=== PATIENT | male | born 1990 | race African-American/Black ===

== ENCOUNTER 2016-12-16 19:39 | Emergency (ER) | payer BC ==
[~2016-12-16] VITALS: Ht 182.8 cm; Wt 104.3 kg
[~2016-12-16 19:39] MED LIST: ADVAIR 100/501 EA INH; ADVAIR DISKUS 11 DSK IH; ALBUTEROL0.09 MG/A2 IH; AMOXICILLIN500 M2 PO; AMOXICILLIN500 MG PO; ANAPROX DS550 MG PO; AVIDOXY100 MG PO; BACTRIM DS 8001 TA1 PO; CLARITIN10 MG PO; CLINDAMYCIN HC300 MG PO; CLINDAMYCIN150 MG PO; CYCLOBENZAPRINE10 MG PO; DOK COLACE100 MG PO; DONNATAL1 TAB PO; FLAGYL500 MG PO; FLONASE 0.05% 121 EA NAS; HYDROCODONE BIT1 T11 PO; KEFLEX500 MG PO; MEDROL DOSEPAK4 MG PO; MOTRIN800 MG PO; Motrin,Rufen800 MG PO; NAPROSYN250 MG PO; NAPROSYN500 MG PO; NASONEX0.05 MG/AC NAS; NATURE S BLEND PO; NORCO 325 MG-51 TAB PO; NORCO 5-325 TA1 EACH PO; PERCOCET 325 MG1 TA2 PO; PHENERGAN W/DM120 ML PO; PREDNICOT10 MG PO; PREDNISONE10 MG PO; PROAIR HFA0.09 MG/AC INH; PROVENTIL0.09 MG/AC IH; SINGULAIR10 MG PO; SUDAFED60 MG PO; TESSALON PERLE100 M1 PO; TOBREX OPHTH S2.5 ML OPH; TRAMADOL HCL50 MG PO; ULTRAM50 MG PO; VIBRAMYCIN100 MG PO; VICODIN 5/500 505 MG PO; ZITHROMAX Z PA250 MG PO; ZOFRAN ODT4 MG SL; ZOFRAN4 MG PO; ZYRTEC10 MG PO
[2016-12-16 20:16] LABS: BASO % 0.3 % (0.0-1.0); EOS # 0.4 10*3/uL (0.0-0.4); EOS % 3.5 % (1.0-4.0); HEMATOCRIT 44.2 % (42.0-52.0); HEMOGLOBIN 14.7 g/dl (14.0-18.0); LYMPH # 2.2 10*3/uL (1.3-4.4); LYMPH % 19.6 % (27.0-41.0); MEAN CELL VOLUME 89.7 fl (80.0-94.0); MEAN CORPUSCULAR HGB 29.8 pg (27.0-31.0); MEAN CORPUSCULAR HGB CONC 33.3 g/dl (33.0-37.0); MONO % 8.7 % (3.0-9.0); NEUT # 7.7 10*3/uL (2.3-7.9); NEUT % 67.6 % (47.0-73.0); PLATELET COUNT AUTOMATED 278 10*3/uL (130-400); RED BLOOD COUNT 4.93 10*6/uL (4.50-5.90); WHITE BLOOD COUNT 11.4 10*3/uL (4.8-10.8)
[2016-12-16 20:31] LABS: ALKALINE PHOSPHATASE 62 U/L (45-117); BILIRUBIN, TOTAL 0.9 mg/dl (0.2-1.0); BUN 18 mg/dl (7-24); CARBON DIOXIDE 29 mmol/L (21-32); CHLORIDE 104 mmol/L (98-107); EST GLOM FILT AFRICAN AMERICAN > 60 ml/min; GLUCOSE 87 mg/dL (65-99); POTASSIUM 3.9 mmol/L (3.5-5.1); SGOT/AST 20 IU/L (3-35); SGPT/ALT 45 U/L (12-78); SODIUM 139 mmol/L (136-145); TOTAL PROTEIN 7.7 gm/dL (6.4-8.2)
[2016-12-16 20:55] LABS: BILIRUBIN NEGATIVE (NEGATIVE); BLOOD NEGATIVE (NEGATIVE); CLARITY CLEAR (CLEAR); COLOR YELLOW (YELLOW); GLUCOSE NEGATIVE (NEGATIVE); KETONE NEGATIVE (NEGATIVE); LEUKO ESTERASE NEGATIVE (NEGATIVE); NITRITE NEGATIVE (NEGATIVE); PH 5.5 (5.0-9.0); PROTEIN NEGATIVE (NEGATIVE); UROBILINOGEN 0.2 E.U./dl (0.2-1.0)
[2016-12-16 21:09] LABS: BACTERIA TRACE; URINE REFLEX COMMENT NO (NO); WBC 0-2 wbc/hpf (0-5)
[2016-12-16] MEDS ORDERED: ZOFRAN ODT4 MG SL (22:05)
== END 2016-12-16 22:07 | disposition home or self-care (01) ==
LOC: ED 19:39
PROVIDERS: Nurse Practitioner Family
DX: A08.4 Viral intestinal infection, unspecified (principal); F17.200 Nicotine dependence, unspecified, uncomplicated

== ENCOUNTER 2017-01-08 05:35 | Emergency (ER) | payer BC ==
[~2017-01-08] VITALS: Ht 182.8 cm; Wt 102.1 kg
[2017-01-08] MEDS ORDERED: Motrin,Rufen800 MG PO (05:56)
== END 2017-01-08 06:39 | disposition home or self-care (01) ==
LOC: ED 05:35
DX: M23.91 Unspecified internal derangement of right knee (principal)

== ENCOUNTER 2017-01-18 23:10 | Emergency (ER) | payer BC ==
[~2017-01-18] VITALS: Ht 182.8 cm; Wt 99.8 kg
== END 2017-01-19 00:27 | disposition home or self-care (01) ==
LOC: ED 23:10
DX: S80.01XA Contusion of right knee, initial encounter (principal); F17.200 Nicotine dependence, unspecified, uncomplicated; X58.XXXA Exposure to other specified factors, initial encounter; Y93.89 Activity, other specified; Y92.9 Unspecified place or not applicable; Y99.9 Unspecified external cause status

== ENCOUNTER 2017-02-25 00:46 | Emergency (ER) | payer BC ==
[~2017-02-25] VITALS: Ht 182.8 cm; Wt 113.4 kg
[2017-02-25] MEDS ORDERED: AMOXICILLIN500 M2 PO (01:11)
== END 2017-02-25 03:40 | disposition home or self-care (01) ==
LOC: ED 00:46
DX: K08.89 Other specified disorders of teeth and supporting structures (principal); F17.200 Nicotine dependence, unspecified, uncomplicated

== ENCOUNTER 2017-04-22 19:26 | Emergency (ER) | payer BC ==
[~2017-04-22] VITALS: Ht 177.8 cm; Wt 79.4 kg
== END 2017-04-22 23:54 | disposition home or self-care (01) ==
LOC: ED 19:26
DX: S93.402A Sprain of unspecified ligament of left ankle, initial encounter (principal); F17.200 Nicotine dependence, unspecified, uncomplicated; X58.XXXA Exposure to other specified factors, initial encounter; Y93.89 Activity, other specified; Y92.9 Unspecified place or not applicable; Y99.9 Unspecified external cause status

== ENCOUNTER 2017-05-22 02:19 | Emergency (ER) | payer BC ==
[~2017-05-22] VITALS: Ht 182.8 cm; Wt 113.4 kg
[2017-05-22 02:58] LABS: BILIRUBIN NEGATIVE (NEGATIVE); BLOOD NEGATIVE (NEGATIVE); CLARITY CLEAR (CLEAR); COLOR YELLOW (YELLOW); GLUCOSE NEGATIVE (NEGATIVE); KETONE NEGATIVE (NEGATIVE); LEUKO ESTERASE NEGATIVE (NEGATIVE); NITRITE NEGATIVE (NEGATIVE); PH 5.5 (5.0-9.0); SPECIFIC GRAVITY >= 1.030 (1.005-1.030)
[2017-05-22 03:04] LABS: MUCOUS TRACE; WBC 0-2 wbc/hpf (0-5)
[2017-05-22] MEDS ORDERED: Orphenadrine C100 MG PO (04:05)
[2017-05-22] MEDS ORDERED: Motrin,Rufen800 MG PO (04:05)
[2017-05-22 04:35] LABS: URINE AMPHETAMINES < 1000 (1000ng/ml); URINE BARBITURATES < 200 (200ng/ml); URINE BENZODIAZEPINES < 200 (200ng/ml); URINE CANNABINOIDS (THC) < 50 (50ng/ml); URINE COCAINE < 300 (300ng/ml); URINE METHADONE < 300 (300ng/ml); URINE OPIATES < 300 (300ng/ml)
[2017-05-22 04:36] LABS: URINE PHENCYCLIDINE < 25 (25ng/ml)
== END 2017-05-22 04:38 | disposition home or self-care (01) ==
LOC: ED 02:19
PROVIDERS: Emergency Medicine Emergency Medical Services
DX: S00.03XA Contusion of scalp, initial encounter (principal); S20.211A Contusion of right front wall of thorax, initial encounter; F17.200 Nicotine dependence, unspecified, uncomplicated; Y08.89XA Assault by other specified means, initial encounter; Y93.89 Activity, other specified; Y92.89 Other specified places as the place of occurrence of the external cause; Y99.9 Unspecified external cause status

== ENCOUNTER 2017-07-04 22:53 | Emergency (ER) | payer BC ==
[~2017-07-04] VITALS: Ht 182.8 cm; Wt 113.4 kg
[~2017-07-04 22:53] MED LIST changes: +Orphenadrine C100 MG PO
[2017-07-04] MEDS ORDERED: AUGMENTIN 875875 MG PO (23:08)
== END 2017-07-05 00:06 | disposition home or self-care (01) ==
LOC: ED 22:53
DX: K02.9 Dental caries, unspecified (principal); F17.200 Nicotine dependence, unspecified, uncomplicated

== ENCOUNTER 2017-09-10 16:17 | Emergency (ER) | payer BC ==
[~2017-09-10] VITALS: Ht 182.8 cm; Wt 113.4 kg
[~2017-09-10 16:17] MED LIST changes: +AUGMENTIN 875875 MG PO
[2017-09-10] MEDS ORDERED: CYCLOBENZAPRINE10 MG PO (17:35)
== END 2017-09-10 19:40 | disposition home or self-care (01) ==
LOC: ED 16:17
DX: M54.5 Low back pain (principal); F17.200 Nicotine dependence, unspecified, uncomplicated; Z79.899 Other long term (current) drug therapy

== ENCOUNTER 2017-11-29 07:46 | Emergency (ER) | payer BC ==
[~2017-11-29] VITALS: Ht 182.8 cm; Wt 113.4 kg
[2017-11-29 07:59] LABS: HEMATOCRIT 47.7 % (42.0-52.0); HEMOGLOBIN 15.5 g/dl (14.0-18.0); MEAN CELL VOLUME 89.8 fl (80.0-94.0); MEAN CORPUSCULAR HGB 29.2 pg (27.0-31.0); MEAN CORPUSCULAR HGB CONC 32.5 g/dl (33.0-37.0); MEAN PLATELET VOLUME 9.8 fl (9.6-12.3); PLATELET COUNT AUTOMATED 327 10*3/uL (130-400); RED BLOOD COUNT 5.31 10*6/uL (4.50-5.90); RED CELL DISTRI WIDTH 13.1 % (0-14.5); WHITE BLOOD COUNT 13.7 10*3/uL (4.8-10.8)
[2017-11-29 08:08] LABS: ACT PARTIAL THROMBO TIME 26.5 SECONDS (20.8-31.5)
[2017-11-29 08:21] LABS: ALKALINE PHOSPHATASE 84 U/L (45-117); BUN 9 mg/dl (7-24); CHLORIDE 103 mmol/L (98-107); CREATININE 0.98 mg/dL (0.70-1.30); POTASSIUM 3.6 mmol/L (3.5-5.1); SGOT/AST 21 IU/L (3-35); SGPT/ALT 40 U/L (12-78); SODIUM 140 mmol/L (136-145); TOTAL PROTEIN 7.8 gm/dL (6.4-8.2)
[2017-11-29 08:26] LABS: ATYPICAL LYMPHS 3 % (0-0); PLATELET SUFFICIENCY NORMAL (NORMAL); TOTAL CELLS COUNTED 100 #CELLS; TROPONIN I < 0.015 ng/ml (<0.045)
== END 2017-11-29 09:05 | disposition home or self-care (01) ==
LOC: ED 07:46
PROVIDERS: Emergency Medicine
DX: R07.89 Other chest pain (principal); R06.02 Shortness of breath

== ENCOUNTER 2017-12-02 20:11 | Emergency (ER) | payer BC ==
[~2017-12-02] VITALS: Ht 182.8 cm; Wt 113.4 kg
[2017-12-02] MEDS ORDERED: Motrin,Rufen800 MG PO (22:28)
[2017-12-02] MEDS ORDERED: CYCLOBENZAPRINE5 M3 PO (22:28)
== END 2017-12-02 22:32 | disposition home or self-care (01) ==
LOC: ED 20:11
DX: M54.5 Low back pain (principal); F17.200 Nicotine dependence, unspecified, uncomplicated; Z79.899 Other long term (current) drug therapy

== ENCOUNTER 2017-12-27 21:19 | Emergency (ER) | payer OTHER, BC ==
[~2017-12-27] VITALS: Ht 182.8 cm; Wt 113.4 kg
[~2017-12-27 21:19] MED LIST changes: +CYCLOBENZAPRINE5 M3 PO
[2017-12-27] MEDS ORDERED: Orphenadrine C100 MG PO (22:47)
[2017-12-27] MEDS ORDERED: KETOROLAC10 MG PO (22:47)
== END 2017-12-27 22:52 | disposition home or self-care (01) ==
LOC: ED 21:19
DX: S16.1XXA Strain of muscle, fascia and tendon at neck level, initial encounter (principal); S50.02XA Contusion of left elbow, initial encounter; S80.01XA Contusion of right knee, initial encounter; F17.200 Nicotine dependence, unspecified, uncomplicated; Z79.899 Other long term (current) drug therapy; V49.88XA Car occupant (driver) (passenger) injured in other specified transport accidents, initial encounter; Y93.89 Activity, other specified; Y92.413 State road as the place of occurrence of the external cause; Y99.9 Unspecified external cause status

== ENCOUNTER 2018-03-17 19:51 | Emergency (ER) | payer BC ==
[~2018-03-17] VITALS: Wt 113.4 kg
[~2018-03-17 19:51] MED LIST changes: +KETOROLAC10 MG PO
== END 2018-03-17 21:05 | disposition home or self-care (01) ==
LOC: ED 19:51
DX: M17.11 Unilateral primary osteoarthritis, right knee (principal); F17.200 Nicotine dependence, unspecified, uncomplicated

== ENCOUNTER 2018-09-19 07:48 | Emergency (ER) | payer OTHER, BC ==
[~2018-09-19] VITALS: Ht 182.8 cm; Wt 113.4 kg
[2018-09-19 08:37] LABS: BASO # 0.1 10*3/uL (0.0-0.1); BASO % 0.5 % (0.0-1.0); EOS # 0.4 10*3/uL (0.0-0.4); HEMATOCRIT 43.4 % (42.0-52.0); HEMOGLOBIN 14.4 g/dl (14.0-18.0); LYMPH # 3.9 10*3/uL (1.3-4.4); LYMPH % 35.1 % (27.0-41.0); MEAN CELL VOLUME 90.2 fl (80.0-94.0); MEAN CORPUSCULAR HGB 29.9 pg (27.0-31.0); MEAN CORPUSCULAR HGB CONC 33.2 g/dl (33.0-37.0); MEAN PLATELET VOLUME 10.1 fl (9.6-12.3); MONO # 1.2 10*3/uL (0.1-1.0); MONO % 10.9 % (3.0-9.0); NEUT # 5.5 10*3/uL (2.3-7.9); NEUT % 49.2 % (47.0-73.0); PLATELET COUNT AUTOMATED 305 10*3/uL (130-400); RED BLOOD COUNT 4.81 10*6/uL (4.50-5.90); RED CELL DISTRI WIDTH 13.1 % (0-14.5); WHITE BLOOD COUNT 11.1 10*3/uL (4.8-10.8)
[2018-09-19 08:55] LABS: BUN 15 mg/dl (7-24); CHLORIDE 105 mmol/L (98-107); CREATININE 1.07 mg/dL (0.70-1.30); POTASSIUM 3.6 mmol/L (3.5-5.1); SODIUM 139 mmol/L (136-145)
[2018-09-19 08:56] LABS: TROPONIN I < 0.015 ng/ml (<0.045)
[2018-11-11] MEDS ORDERED: FLONASE ALLERG9.9 ML NAS (14:53)
[2018-11-11] MEDS ORDERED: ROBITUSSIN DM 105 ML PO (14:53)
== END 2018-09-19 09:27 | disposition home or self-care (01) ==
LOC: ED 07:48
PROVIDERS: Emergency Medicine
DX: J70.5 Respiratory conditions due to smoke inhalation (principal); R07.89 Other chest pain; M17.11 Unilateral primary osteoarthritis, right knee; F17.210 Nicotine dependence, cigarettes, uncomplicated

== ENCOUNTER 2018-10-29 19:14 | Emergency (ER) | payer BC ==
[~2018-10-29] VITALS: Ht 182.8 cm; Wt 113.4 kg
[2018-10-29 20:11] LABS: BASO # 0.1 10*3/uL (0.0-0.1); BASO % 0.6 % (0.0-1.0); EOS # 0.2 10*3/uL (0.0-0.4); EOS % 2.7 % (1.0-4.0); HEMATOCRIT 44.7 % (42.0-52.0); HEMOGLOBIN 14.8 g/dl (14.0-18.0); LYMPH # 2.4 10*3/uL (1.3-4.4); LYMPH % 29.8 % (27.0-41.0); MEAN CELL VOLUME 90.9 fl (80.0-94.0); MEAN CORPUSCULAR HGB 30.1 pg (27.0-31.0); MEAN CORPUSCULAR HGB CONC 33.1 g/dl (33.0-37.0); MEAN PLATELET VOLUME 9.8 fl (9.6-12.3); MONO # 1.1 10*3/uL (0.1-1.0); MONO % 13.8 % (3.0-9.0); NEUT # 4.2 10*3/uL (2.3-7.9); NEUT % 52.9 % (47.0-73.0); PLATELET COUNT AUTOMATED 308 10*3/uL (130-400); RED BLOOD COUNT 4.92 10*6/uL (4.50-5.90); RED CELL DISTRI WIDTH 13.3 % (0-14.5)
[2018-10-29 20:38] LABS: ALBUMIN 3.4 gm/dl (3.1-4.5); ALKALINE PHOSPHATASE 67 U/L (45-117); BUN 14 mg/dl (7-24); CHLORIDE 109 mmol/L (98-107); CREATININE 1.02 mg/dL (0.70-1.30); LIPASE 51 U/L (73-393); POTASSIUM 3.8 mmol/L (3.5-5.1); SGOT/AST 15 IU/L (3-35); SGPT/ALT 35 U/L (12-78); SODIUM 141 mmol/L (136-145); TOTAL PROTEIN 7.3 gm/dL (6.4-8.2)
[2018-10-29 20:57] LABS: BILIRUBIN NEGATIVE (NEGATIVE); BLOOD NEGATIVE (NEGATIVE); CLARITY CLEAR (CLEAR); COLOR YELLOW (YELLOW); GLUCOSE NEGATIVE (NEGATIVE); KETONE TRACE (NEGATIVE); LEUKO ESTERASE NEGATIVE (NEGATIVE); NITRITE NEGATIVE (NEGATIVE)
[2018-10-29 21:08] LABS: BACTERIA 1+; MUCOUS 3+
[2018-10-29] MEDS ORDERED: AMOXICILLIN500 M2 PO (21:56)
[2018-10-29] MEDS ORDERED: FLONASE ALLERG9.9 ML NAS (21:56)
[2018-10-29] MEDS ORDERED: ZOFRAN4 MG PO (21:58)
[2018-11-11] MEDS ORDERED: ROBITUSSIN DM 105 ML PO (14:53)
[2018-11-11] MEDS ORDERED: FLONASE ALLERG9.9 ML NAS (14:53)
[2019-01-16] MEDS ORDERED: IBU800 MG PO (18:02)
[2019-01-16] MEDS ORDERED: PREDNISONE20 M1 PO (18:02)
== END 2018-10-29 22:09 | disposition home or self-care (01) ==
LOC: ED 19:14
PROVIDERS: Emergency Medicine Emergency Medical Services
DX: K52.89 Other specified noninfective gastroenteritis and colitis (principal); J32.0 Chronic maxillary sinusitis; M17.11 Unilateral primary osteoarthritis, right knee; F17.200 Nicotine dependence, unspecified, uncomplicated

== ENCOUNTER 2018-12-07 23:08 | Emergency (ER) | payer BC ==
[~2018-12-07] VITALS: Ht 182.8 cm; Wt 113.4 kg
[~2018-12-07 23:08] MED LIST changes: +FLONASE ALLERG9.9 ML NAS; +ROBITUSSIN DM 105 ML PO
[2018-12-07] MEDS ORDERED: CYCLOBENZAPRINE10 MG PO (23:14)
[2018-12-07] MEDS ORDERED: IBU800 MG PO (23:14)
[2019-01-16] MEDS ORDERED: IBU800 MG PO (18:02)
[2019-01-16] MEDS ORDERED: PREDNISONE20 M1 PO (18:02)
== END 2018-12-07 23:32 | disposition home or self-care (01) ==
LOC: ED 23:08
DX: M54.6 Pain in thoracic spine (principal); J45.909 Unspecified asthma, uncomplicated; F17.200 Nicotine dependence, unspecified, uncomplicated; Z79.2 Long term (current) use of antibiotics; Z79.899 Other long term (current) drug therapy

== ENCOUNTER 2019-04-12 19:21 | Emergency (ER) | payer BC ==
[~2019-04-12] VITALS: Ht 182.8 cm; Wt 113.4 kg
[~2019-04-12 19:21] MED LIST changes: +IBU800 MG PO; +PREDNISONE20 M1 PO
== END 2019-04-12 23:15 | disposition home or self-care (01) ==
LOC: ED 19:21
DX: S86.911A Strain of unspecified muscle(s) and tendon(s) at lower leg level, right leg, initial encounter (principal); F17.200 Nicotine dependence, unspecified, uncomplicated; Z96.651 Presence of right artificial knee joint; X58.XXXA Exposure to other specified factors, initial encounter; Y93.89 Activity, other specified; Y92.89 Other specified places as the place of occurrence of the external cause; Y99.8 Other external cause status

== ENCOUNTER 2019-08-07 19:28 | Emergency (ER) | payer BC ==
[~2019-08-07] VITALS: Ht 182.8 cm; Wt 113.4 kg
== END 2019-08-07 21:15 | disposition home or self-care (01) ==
LOC: ED 19:28
DX: M25.561 Pain in right knee (principal); R60.0 Localized edema; J45.909 Unspecified asthma, uncomplicated; F17.200 Nicotine dependence, unspecified, uncomplicated; Z79.899 Other long term (current) drug therapy; X50.0XXA Overexertion from strenuous movement or load, initial encounter; Y93.89 Activity, other specified; Y92.89 Other specified places as the place of occurrence of the external cause; Y99.8 Other external cause status

== ENCOUNTER 2020-03-24 13:50 | Emergency (ER) | payer BC ==
[~2020-03-24] VITALS: Ht 182.8 cm; Wt 111.1 kg
[2020-03-24] MEDS ORDERED: DOXYCYCLINE100 M3 PO (14:48)
[2020-03-24] MEDS ORDERED: IBU800 MG PO (14:48)
[2020-03-24] MEDS ORDERED: NORCO 5-325 TA1 EACH PO (14:48)
== END 2020-03-24 14:48 | disposition home or self-care (01) ==
LOC: ED 13:50
DX: L05.01 Pilonidal cyst with abscess (principal); J45.909 Unspecified asthma, uncomplicated; F17.200 Nicotine dependence, unspecified, uncomplicated; Z79.899 Other long term (current) drug therapy

== ENCOUNTER 2020-05-30 19:25 | Emergency (ER) | payer BC ==
[~2020-05-30] VITALS: Ht 182.8 cm; Wt 113.4 kg
[~2020-05-30 19:25] MED LIST changes: +DOXYCYCLINE100 M3 PO
== END 2020-05-30 21:16 | disposition left against medical advice (07) ==
LOC: ED 19:25
DX: M25.561 Pain in right knee (principal); J45.909 Unspecified asthma, uncomplicated; Z53.21 Procedure and treatment not carried out due to patient leaving prior to being seen by health care provider

== ENCOUNTER 2020-05-31 12:08 | Emergency (ER) | payer BC ==
[~2020-05-31] VITALS: Ht 182.8 cm; Wt 113.4 kg
== END 2020-05-31 15:46 | disposition home or self-care (01) ==
LOC: ED 12:08
DX: M25.561 Pain in right knee (principal); Z87.891 Personal history of nicotine dependence

== ENCOUNTER → 2020-08-28 | Outpatient (CLI) | payer BC ==
[~2020-08-28] MED LIST changes: +IBUPROFEN600 MG PO
[2020-08-30 05:06] LABS: HEPATITIS B SURFACE AG Negative (Negative)
[2020-08-30 21:09] LABS: HEPATITIS C QNT HCV Not Detected IU/mL (.)
== END | disposition home or self-care (01) ==
LOC: LAB 17:26
PROVIDERS: ATTEND Specialist
DX: Z11.4 Encounter for screening for human immunodeficiency virus [HIV] (principal); Z11.59 Encounter for screening for other viral diseases

== ENCOUNTER 2020-09-18 16:32 | Emergency (ER) | payer BC ==
[~2020-09-18] VITALS: Ht 182.8 cm; Wt 115.7 kg
[~2020-09-18 16:32] MED LIST changes: -IBUPROFEN600 MG PO
[2020-09-18] MEDS ORDERED: IBUPROFEN600 MG PO (17:43)
[2020-09-18] MEDS ORDERED: DOXYCYCLINE100 M3 PO (17:43)
== END 2020-09-18 18:51 | disposition home or self-care (01) ==
LOC: ED 16:32
DX: L05.91 Pilonidal cyst without abscess (principal); J45.909 Unspecified asthma, uncomplicated; F17.200 Nicotine dependence, unspecified, uncomplicated; Z79.2 Long term (current) use of antibiotics; Z79.899 Other long term (current) drug therapy

== ENCOUNTER 2020-12-18 11:39 | Emergency (ER) | payer BC ==
[~2020-12-18] VITALS: Ht 182.8 cm; Wt 111.1 kg
[~2020-12-18 11:39] MED LIST changes: +IBUPROFEN600 MG PO
[2020-12-18] MEDS ORDERED: IBUPROFEN600 MG PO (12:32)
[2020-12-18] MEDS ORDERED: FLAGYL500 MG PO (12:32)
== END 2020-12-18 14:36 | disposition home or self-care (01) ==
LOC: ED 11:39
DX: S83.91XA Sprain of unspecified site of right knee, initial encounter (principal); A59.9 Trichomoniasis, unspecified; J45.909 Unspecified asthma, uncomplicated; F17.200 Nicotine dependence, unspecified, uncomplicated; Z79.899 Other long term (current) drug therapy; Z79.2 Long term (current) use of antibiotics; W10.8XXA Fall (on) (from) other stairs and steps, initial encounter; Y93.89 Activity, other specified; Y92.89 Other specified places as the place of occurrence of the external cause; Y99.8 Other external cause status

== ENCOUNTER → 2021-02-08 | Outpatient (CLI) | payer BC ==
[2021-02-09 08:08] LABS: HEPATITIS B SURFACE AG Negative (Negative)
== END | disposition home or self-care (01) ==
LOC: LAB 15:04
PROVIDERS: ATTEND Specialist
DX: Z31.49 Encounter for other procreative investigation and testing (principal)

== ENCOUNTER → 2021-03-15 | Outpatient (CLI) | payer BC | END | disposition home or self-care (01) | LOC: LAB 12:29 | PROVIDERS: ATTEND Specialist | DX: Z31.49 Encounter for other procreative investigation and testing (principal) ==

== ENCOUNTER 2021-05-02 14:38 | Emergency (ER) | payer BC | END 2021-05-02 19:00 | disposition left against medical advice (07) | LOC: ED 14:38 | DX: M25.561 Pain in right knee (principal); M25.572 Pain in left ankle and joints of left foot; Z53.21 Procedure and treatment not carried out due to patient leaving prior to being seen by health care provider; W18.39XA Other fall on same level, initial encounter; Y93.89 Activity, other specified; Y92.89 Other specified places as the place of occurrence of the external cause; Y99.8 Other external cause status ==

== ENCOUNTER → 2021-11-20 | Outpatient (CLI) | payer BC | END | disposition home or self-care (01) | LOC: CT 15:00 | PROVIDERS: ATTEND Physical Medicine & Rehabilitation Brain Injury Medicine | DX: G96.08 Other cranial cerebrospinal fluid leak (principal) ==

== ENCOUNTER → 2022-04-22 | Outpatient (CLI) | payer OTHER ==
[2022-04-22 17:18] LABS: BASO % 0.4 % (0.0-1.0); EOS # 0.3 10*3/uL (0.0-0.4); EOS % 2.9 % (1.0-4.0); HEMATOCRIT 45.3 % (42.0-52.0); LYMPH # 3.1 10*3/uL (1.3-4.4); LYMPH % 28.8 % (27.0-41.0); MEAN CELL VOLUME 89.3 fl (80.0-94.0); MEAN CORPUSCULAR HGB 28.4 pg (27.0-31.0); MEAN CORPUSCULAR HGB CONC 31.8 g/dl (33.0-37.0); MEAN PLATELET VOLUME 10.8 fl (9.6-12.3); MONO # 1.1 10*3/uL (0.1-1.0); MONO % 9.9 % (3.0-9.0); NEUT # 6.2 10*3/uL (2.3-7.9); NEUT % 57.7 % (47.0-73.0); PLATELET COUNT AUTOMATED 374 10*3/uL (130-400); RED BLOOD COUNT 5.07 10*6/uL (4.50-5.90); RED CELL DISTRI WIDTH 13.2 % (0-14.5); WHITE BLOOD COUNT 10.8 10*3/uL (4.8-10.8)
[2022-04-22 17:36] LABS: ALKALINE PHOSPHATASE 123 U/L (45-117); BUN 21 mg/dl (7-24); CHLORIDE 107 mmol/L (98-107); SGOT/AST 27 IU/L (3-35); SGPT/ALT 75 U/L (12-78); SODIUM 141 mmol/L (136-145); TOTAL PROTEIN 8.6 gm/dL (6.4-8.2)
== END | disposition home or self-care (01) ==
LOC: LAB 16:51
PROVIDERS: ATTEND Family Medicine
DX: R56.9 Unspecified convulsions (principal)

== ENCOUNTER 2022-05-28 00:40 | Emergency (ER) | payer OTHER ==
[~2022-05-28] VITALS: Ht 182.8 cm; Wt 114.3 kg
[2022-05-28 02:36] LABS: BASO % 0.3 % (0.0-1.0); EOS # 0.2 10*3/uL (0.0-0.4); EOS % 1.8 % (1.0-4.0); HEMATOCRIT 43.4 % (42.0-52.0); LYMPH # 2.2 10*3/uL (1.3-4.4); LYMPH % 18.4 % (27.0-41.0); MEAN CELL VOLUME 88.6 fl (80.0-94.0); MEAN CORPUSCULAR HGB 28.4 pg (27.0-31.0); MEAN PLATELET VOLUME 11.2 fl (9.6-12.3); MONO # 0.9 10*3/uL (0.1-1.0); MONO % 7.5 % (3.0-9.0); NEUT # 8.6 10*3/uL (2.3-7.9); NEUT % 71.7 % (47.0-73.0); PLATELET COUNT AUTOMATED 354 10*3/uL (130-400); RED CELL DISTRI WIDTH 13.7 % (0-14.5)
[2022-05-28 02:56] LABS: ALKALINE PHOSPHATASE 120 U/L (45-117); BUN 18 mg/dl (7-24); CHLORIDE 107 mmol/L (98-107); CREATININE 0.56 mg/dL (0.70-1.30); POTASSIUM 3.8 mmol/L (3.5-5.1); SGOT/AST 9 IU/L (3-35); SGPT/ALT 37 U/L (12-78); SODIUM 138 mmol/L (136-145)
[2022-05-28] MEDS ORDERED: LOVENOX120 MG/0.8 SC (10:23)
== END 2022-05-28 10:45 | disposition home or self-care (01) ==
LOC: ED 00:40
PROVIDERS: Emergency Medicine
DX: I82.401 Acute embolism and thrombosis of unspecified deep veins of right lower extremity (principal); M25.561 Pain in right knee

== ENCOUNTER → 2022-06-13 | Outpatient (CLI) | payer OTHER ==
[~2022-06-13] MED LIST changes: +LOVENOX120 MG/0.8 SC
== END | disposition home or self-care (01) ==
LOC: LAB 13:04
PROVIDERS: ATTEND Family Medicine
DX: R56.9 Unspecified convulsions (principal)

== ENCOUNTER 2023-09-18 23:48 | Emergency (ER) | payer OTHER ==
[2023-09-19 00:29] LABS: BASO % 0.4 % (0.0-1.0); EOS # 0.3 10*3/uL (0.0-0.4); EOS % 2.5 % (1.0-4.0); HEMATOCRIT 43.4 % (42.0-52.0); LYMPH # 3.5 10*3/uL (1.3-4.4); LYMPH % 32.7 % (27.0-41.0); MEAN CELL VOLUME 91.4 fl (80.0-94.0); MEAN CORPUSCULAR HGB CONC 30.6 g/dl (33.0-37.0); MEAN PLATELET VOLUME 11.3 fl (9.6-12.3); MONO # 0.9 10*3/uL (0.1-1.0); NEUT % 56.1 % (47.0-73.0); PLATELET COUNT AUTOMATED 317 10*3/uL (130-400); RED BLOOD COUNT 4.75 10*6/uL (4.50-5.90); RED CELL DISTRI WIDTH 14.5 % (0-14.5); WHITE BLOOD COUNT 10.7 10*3/uL (4.8-10.8)
[2023-09-19 00:40] LABS: ACT PARTIAL THROMBO TIME 32.6 SECONDS (20.0-32.1)
[2023-09-19 00:49] LABS: ALKALINE PHOSPHATASE 107 U/L (46-116); BUN 16 mg/dl (9-23); CHLORIDE 107 mmol/L (98-107); LIPASE 25 U/L (12-53); POTASSIUM 4.1 mmol/L (3.4-5.1); SGPT/ALT 45 U/L (5-49); TOTAL PROTEIN 8.1 gm/dL (6.0-8.0)
[2023-09-19 01:34] LABS: BILIRUBIN Negative (Negative); BLOOD Negative (Negative); CLARITY Clear (Clear); COLOR Dark Yellow (Yellow); GLUCOSE Negative (Negative); KETONE Trace (Negative); LEUKO ESTERASE Trace (Negative); NITRITE Negative (Negative); PH 6.5 (4.5-8.0); SPECIFIC GRAVITY >= 1.030 (1.001-1.030)
[2023-09-19 02:03] LABS: MUCOUS 1+
== END 2023-09-19 02:55 | disposition home or self-care (01) ==
LOC: ED 23:48
PROVIDERS: Internal Medicine
DX: R33.9 Retention of urine, unspecified (principal); J45.909 Unspecified asthma, uncomplicated; R10.2 Pelvic and perineal pain; Z98.890 Other specified postprocedural states; F17.200 Nicotine dependence, unspecified, uncomplicated